=== PATIENT | male | born 1960 | race Caucasian/White ===

== ENCOUNTER 2023-01-19 03:40 | Emergency (ER) | payer MEDICAID ==
[2023-01-19] MEDS ORDERED: Ketorolac Tromethamine 30 MG/ML VIAL ONE (04:07)
== END 2023-01-19 04:15 | disposition home or self-care (01) ==
LOC: CSHERS 03:40
DX: M25.512 Pain in left shoulder (principal); M25.511 Pain in right shoulder
CPT/HCPCS: 96372; 99283; J1885